=== PATIENT | female | born 1950 | race Caucasian/White ===

== ENCOUNTER 2024-08-11 13:16 | Inpatient (IN) ==
[2024-08-11] MEDS: fentaNYL citrate PF 100 MCG/2 ML VIAL IV STA (14:05)
[2024-08-11] MEDS: ONDANSETRON INJ 2 MG/ML 2 ML VIAL IV STA ×2 (14:05→15:31)
[2024-08-11] MEDS: SODIUM CHLORIDE 0.9% 500 ML IV ONE (14:05)
--- NOTE | 2024-08-11 14:16 | Emergency Department Note ---
Impression & Plan Fall, CHI (closed head injury), Contusion of face, Left wrist fracture, Foot pain, left ED Provider Note CHIEF COMPLAINT: Wrist and Ankle/Foot Trauma HISTORY OF PRESENT ILLNESS: Jai (sandoval Lynn) is 74 year old with a history of osteopenia who presents to the emergency department with wrist, ankle, and face pain after falling. She was crossing the street and fell over an uneven sidewalk. She hit her left cheek on the sidewalk, went to brace herself with her left hand/wrist, and twisted her ankle. She was wearing glasses when she fell but they did not break. Did not lose consciousness and she has not vomited. She did not feel dizzy or lightheaded before she fell. Feels severe pain (10/10) in her left wrist and her left foot (10/10). Moderate pain in face when talking. Lives in [place] coming to [employer] for [employer] game. Here with her daughter Mervat. Denies headache, dizziness, nausea/vomiting. Denies any chest pain or shortness of breath. No changes in vision or eyesight. No abdominal pain or back pain. REVIEW OF SYSTEMS: A review of systems was performed with positives and pertinent negatives listed in the history of present illness. 10 systems were reviewed and are otherwise negative. ALLERGIES: see below Levaquin allergy - shortness of breath and hives Sweeteners - vomiting MEDICATIONS: see below Xiidra (5% dryness) - Eye drops Supplements : Iron, B3, B12, amongst others PMH: DEXA - osteopenia (does not take calcium supplements) Past surgeries/hospitalizations: Mar 28 2024 of this year L thumb surgery for arthritis June 2022 - Left Hip Replacement Cataract surgery 1989 hysterectomy C section x3 Cyst surgery on neck SOCIAL HISTORY: No alcohol or drug use. DDx: Closed head injury, cervical spine fracture, facial fracture, concussion, left wrist fracture, hip fracture, left foot fracture PHYSICAL EXAM: Vital signs reviewed. General: anxious appearing 74-year-old female, hyperventilating and rolling on the bed HEENT: No scleral icterus, PERRLA, Superficial abrasion and ecchymosis on left cheek. Neck: nontender to palpation of cervical, thoracic and lumbar spine. Pulmonary: Normal work of breathing. Clear to auscultation bilaterally Musculoskeletal: - L Knee: full ROM without significant deformity, mild abrasion noted - Left foot: Diffusely tender to palpation without significant deformity or ecchymosis. Unwilling to bear weight. - L Wrist: Tender to palpation over the distal left wrist with mild ecchymosis noted, no obvious swelling. Neurovascularly intact distally. - L Elbow: full ROM, no tenderness to palpation, - L Shoulder: full ROM, no tenderness to palpation Neurologic: Patient awake alert and oriented x 3, speech is clear Skin: Warm, dry, no rash. Facial contusion as noted above EMERGENCY DEPARTMENT COURSE/MDM: This patient was evaluated and appeared to be in no significant distress. IV access was obtained and laboratory work was drawn. The patient was placed on the foreign language stenographer noted to be in a normal sinus rhythm. CT scan of the head, face and cervical spine were performed and revealed no evidence of acute fractures, there is soft tissue swelling noted over the left maxillary region. X-ray of the left wrist reveals a possible distal radius fracture, no significant displacement. Left elbow, left foot and left hip x-rays are read as negative. Patient was given IV fentanyl, IV Zofran, IV acetaminophen and hydrated with normal saline solution. She became quite nauseated and was given an additional 4 mg of IV Zofran. Patient was placed in a left wrist volar Ortho-Glass splint. She was unable to bear weight on the left foot and the foot was reexamined. She is diffusely tender however there is no significant deformity or swelling. She was placed in a walking boot. Patient became quite nauseated was given a second dose of IV Zofran. She requested additional pain medication was given additional IV fentanyl. Patient and daughter were quite anxious about the level of discomfort and the patient's inability to bear weight on the foot. They did not think she would be able to make it home in the car for 2 hours to follow-up with her orthopedic surgeon. Given that the patient is unable to bear weight on the left foot has a likely fracture left wrist, was felt to be in the patient's best interest to be evaluated by the hospitalist service for admission, orthopedic and PT consultation and further management. Patient and daughter are aware of the plan and agreed. MONITORING: An order for cardiac monitoring was placed and the patient is noted to be in a normal sinus rhythm 79 beats per minute. RADIOLOGY: CT imaging of the head to my interpretation and radiology's over read reveals no evidence of acute intracranial process. CT imaging of the cervical spine to radiology's interpretation is negative for acute fracture, please see final read below. Left wrist x-ray to my interpretation and radiology's over read reveals a possible distal radius fracture, please see final read below. Left elbow x-ray to my interpretation reveals no evidence of acute fracture, please see radiology's read below. Left foot x-ray to my interpretation and radiology's overread reveals no evidence of acute fracture. Please see final read below. Left hip x-ray to my interpretation radiology's over read reveals prior total hip arthroplasty without evidence of acute fracture or dislocation. Face CT per radiology reveals no evidence of acute fracture. DISPOSITION: Admission Past Med/Surg History Problem List (Updated 08/12/24 @ 07:46 by Yudy Pollack MD) Foot pain, left (Acute) Left wrist fracture (Acute) Contusion of face (Acute) CHI (closed head injury) (Acute) Fall (Acute) Social History Smoking Status: Never smoker Tobacco Type: Cigarettes Hx Alcohol Use: No Hx Substance Use: No Preferred Language: Albanian Communication Ability: Effective Professor Of History Required: No Beliefs That Will Affect Care: None Current Living Situation: Spouse and Family Current Living Situation Comment: and stepson Feels Safe at Home: Yes Assistive Devices: Glasses Allergies Allergies Allergy/AdvReac Type Severity Reaction Status Date / Time aspartame Allergy "sweeteners. Unverified 08/11/24 15:26 Causes vomiting" levofloxacin [From Levaquin] AdvReac Intermediate shortness Unverified 08/11/24 15:26 of breath and hives Home Meds Home Medications Medication Instructions Recorded Confirmed B12 1 tab PO DAILY 08/11/24 08/11/24 iron 1 tab PO DAILY 08/11/24 08/11/24 lifitegrast 5 % eye drops in a 1 drp ophthalmic (eye) BID 08/11/24 08/11/24 dropperette (Xiidra) niacin 1 tab PO DAILY 08/11/24 08/11/24 Results & Data (ED) Vital Signs Vital Signs - 24 hr 08/11/24 13:25 Temperature 36.7 C Temperature Source Oral Pulse Rate 79 Respiratory Rate 22 Blood Pressure 130/81 Blood Pressure Mean 97 Pulse Oximetry 100 Oxygen Delivery Method Room Air Sepsis Recent Fever Within 48 Hours No Sepsis New/Unexplained Change in Mental Status No Sepsis Action Taken by Nursing No Action Required Home Medications Current Medication List: was personally reviewed by me Laboratory Data Attestation: I reviewed the patient's lab results. 08/12/24 06:09 08/12/24 06:09 Administered Medications Acetaminophen (Ofirmev) 1,000 mg in 100 mls @ 400 mls/hr IV Q8H PRN PRN Reason: Pain Stop: 08/14/24 22:07 Last Infusion: 08/11/24 22:30 Dose: Infused Documented By: Admin: 08/11/24 22:13 Dose: 400 mls/hr Documented By: BERTO Ondansetron HCl (Ondansetron Inj 2 Mg/Ml 2 Ml Vial) 4 mg IV Q4H PRN PRN Reason: Nausea Stop: 09/10/24 16:40 Last Admin: 08/12/24 03:29 Dose: 4 mg Documented By: Admin: 08/11/24 20:21 Dose: 4 mg Documented By: TESS Oxycodone HCl (Oxycodone Hcl Ir 5 Mg Tab (Immediate Release)) 5 mg PO Q6H PRN PRN Reason: Pain, breakthrough Stop: 08/25/24 16:32 Last Admin: 08/12/24 01:42 Dose: 5 mg Documented By: BERTO Discontinued Medications Fentanyl Citrate (Fentanyl Citrate Pf 100 Mcg/2 Ml Vial) 50 mcg IV NOW STA Stop: 08/11/24 13:50 Last Admin: 08/11/24 14:05 Dose: 50 mcg Documented By: LYN Fentanyl Citrate (Fentanyl Citrate Pf 100 Mcg/2 Ml Vial) 25 mcg IV NOW ONE Stop: 08/11/24 16:00 Last Admin: 08/11/24 18:44 Dose: Not Given Documented By: GALEN Sodium Chloride (Nss) 500 mls @ 999 mls/hr IV .Q31M ONE Stop: 08/11/24 14:19 Last Infusion: 08/11/24 16:31 Dose: Infused Documented By: Admin: 08/11/24 14:05 Dose: 999 mls/hr Documented By: LYN Acetaminophen (Ofirmev) 1,000 mg in 100 mls @ 400 mls/hr IV NOW STA Stop: 08/11/24 14:29 Last Infusion: 08/11/24 15:54 Dose: Infused Documented By: Admin: 08/11/24 14:33 Dose: 400 mls/hr Documented By: LYN Lactated Ringer's (Lr) 500 mls @ 999 mls/hr IV .Q31M ONE Stop: 08/11/24 18:55 Last Infusion: 08/11/24 20:19 Dose: Infused Documented By: Admin: 08/11/24 19:21 Dose: 999 mls/hr Documented By: TESS Ondansetron HCl (Ondansetron Inj 2 Mg/Ml 2 Ml Vial) 4 mg IV NOW STA Stop: 08/11/24 13:50 Last Admin: 08/11/24 14:05 Dose: 4 mg Documented By: LYN Ondansetron HCl (Ondansetron Inj 2 Mg/Ml 2 Ml Vial) 4 mg IV NOW STA Stop: 08/11/24 15:27 Last Admin: 08/11/24 15:31 Dose: 4 mg Documented By: SOPHIE Ondansetron HCl (Ondansetron Home Pack 4mg Od Tab) 1 each PO NOW ONE Stop: 08/11/24 15:43 Last Admin: 08/11/24 16:11 Dose: Not Given Documented By: GALEN Tetanus/Diphtheria Toxoids Adsorbed (Diphtheria/Tetanus Tox Adsorb Vaccine (Td) 0.5 Ml Syr/Vial) 0.5 ml IM .ONCE ONE Stop: 08/11/24 16:42 Last Admin: 08/11/24 18:50 Dose: 0.5 ml Documented By: GALEN Imaging Data Radiologist's Impression: Head CT 08/11/24 13:47 CT head/brain wo con CLINICAL HISTORY: trauma Technique: Contiguous axial CT images of the head were acquired from the base of the skull to the vertex without intravenous contrast administration. Images were viewed in brain, subdural and bone windows. Automated dose lowering techniques and/or adjustment according to patient size were utilized for this exam. Comparison: None available at the time of this dictation. Findings: The ventricles, basal cisterns, and cerebral sulci are normal. There is no acute intracranial hemorrhage or evidence of acute territorial infarction. Neither mass effect, shift of the midline structures, nor abnormal extra-axial fluid collections are shown. Imaged portions of the paranasal sinuses and mastoid air cells are clear. The orbits appear normal. There are no acute fractures of the calvaria or scalp swelling. Impression: No acute intracranial hemorrhage, no evidence of acute territorial infarction or other acute intracranial disease process. ACT 112: Negative or not required by law. Electronically signed by: Phillip Garcia M.D. 08/11/2024 3:[address] 08/11/24 13:48 CT cervical spine wo con CLINICAL HISTORY: trauma TECHNIQUE: Multidetector row helical CT of the cervical spine was performed without administration of intravenous contrast. Coronal and sagittal reformations were obtained. Automated dose lowering techniques and/or adjustment according to patient size were utilized for this exam. Comparison: None available at the time of this dictation. FINDINGS: No acute fractures or subluxations are identified. Degenerative changes are seen in the visualized spine. The alignment is normal. Biapical scarring is seen in the lungs. IMPRESSION: Degenerative changes without evidence of acute bony injury. ACT 112: Negative or not required by law. Electronically signed by: Phillip Garcia M.D. 08/11/2024 3:21 PM Wrist X-Ray 08/11/24 13:48 XR wrist LT min 3V routine CLINICAL HISTORY: trauma TECHNIQUE: 4 views of the left wrist were obtained. Comparison: None available at the time of this dictation. FINDINGS: There is a lucency projecting over the radial metaphysis. Apparent lucency over the lateral portion of the scaphoid only is likely artifactual. Joint spaces are well-preserved. Soft tissue swelling is seen about the wrist. IMPRESSION: Possible nondisplaced radial fracture. Scaphoid lucency is likely artifactual but correlation with point tenderness is recommended. ACT 112: Negative or not required by law. Electronically signed by: Phillip Garcia M.D. 08/11/2024 2:38 PM Elbow X-Ray 08/11/24 14:14 XR elbow LT min 3V routine CLINICAL HISTORY: trauma TECHNIQUE: 3 views of the left elbow were obtained. Comparison: None available at the time of this dictation. FINDINGS: There is no evidence of an acute fracture. Apparent irregularity in the lateral epicondyle is likely artifactual. Joint spaces are well-preserved. There is no prominence of the anterior or posterior fat pads to suggest an effusion. No soft tissue abnormality is seen. IMPRESSION: No evidence of acute osseous injury. Apparent irregularity in the lateral epicondyle is likely artifactual, correlation with point tenderness is recommended. ACT 112: Negative or not required by law. Electronically signed by: Phillip Garcia M.D. 08/11/2024 3:34 PM Foot X-Ray 08/11/24 14:14 XR foot LT min 3V routine CLINICAL HISTORY: trauma TECHNIQUE: 3 views of the left foot were obtained. Comparison: None available at the time of this dictation. FINDINGS: No fractures are present. Bones are osteopenic. Irregularity about the lateral aspects of the second, third, and fourth metatarsal proximal shaft is likely chronic. Degenerative changes are seen. No soft tissue abnormality is seen. IMPRESSION: Degenerative changes without evidence of acute fracture. ACT 112: Negative or not required by law. Electronically signed by: Phillip Garcia M.D. 08/11/2024 3:34 PM Hip X-Ray 08/11/24 14:14 XR hip LT min 2V CLINICAL HISTORY: trauma TECHNIQUE: 2 views of the left hip were obtained. Comparison: None available at the time of this dictation. FINDINGS: There is no evidence of an acute fracture. Total hip arthoplasty hardware is seen without perihardware lucency or hardware fracture. No soft tissue abnormality is seen. IMPRESSION: No evidence of acute osseous injury. ACT 112: Negative or not required by law. Electronically signed by: Phillip Garcia M.D. 08/11/2024 3:[address] 08/11/24 14:49 CT facial bones wo con CLINICAL HISTORY: trauma TECHNIQUE: Multidetector row helical CT of the maxillofacial bones was performed without administration of intravenous contrast, and processed with bone and soft tissue algorithms. Coronal and sagittal reformations were obtained. Automated dose lowering techniques and/or adjustment according to patient size were utilized for this exam. Comparison: None available at the time of this dictation. FINDINGS: Nasal bones are normal. The mandible is intact. The temporomandibular joints are anatomically aligned. Pterygoid plates are intact. Zygomatic arches are intact. The globes are normal and symmetric, without proptosis, obvious disruption or lens dislocation. There is no orbital radiopaque foreign body. The orbital tubbs are intact. The retrobulbar fat is without evidence of disruption. Extraocular muscles are normal and symmetric. Optic nerve sheath complexes are normal in course and caliber. Imaged portions of the paranasal sinuses and mastoid air cells are clear. Soft tissue swelling is seen in the left greater than right maxillary region. Numerous radiodensities in the skin surface may represent foreign bodies. IMPRESSION: Soft tissue swelling and possible radiodense foreign bodies within the skin surface. No evidence of acute fracture. ACT 112: Negative or not required by law. Electronically signed by: Phillip Garcia M.D. 08/11/2024 3:23 PM Discharge Plan Visit Data Chief Complaint: Fall Stated Complaint: FALL ED Provider: Yudy Pollack Discharge Problem: Fall, CHI (closed head injury), Contusion of face, Left wrist fracture, Foot pain, left Patient Disposition: Home - Self-Care Condition: Good Discharge Instructions Interventions: ED Discharge Assessment Last Done: 08/11/24 21:23 Discharge Problem: Fall Qualifiers: Encounter type: initial encounter Qualified Code(s): W19.XXXA - Unspecified fall, initial encounter CHI (closed head injury) Qualifiers: Encounter type: initial encounter Qualified Code(s): S09.90XA - Unspecified injury of head, initial encounter Contusion of face Qualifiers: Encounter type: initial encounter Qualified Code(s): S00.83XA - Contusion of other part of head, initial encounter Left wrist fracture Qualifiers: Encounter type: initial encounter Fracture type: closed Qualified Code(s): S 62.102A - Fracture of unspecified carpal bone, left wrist, initial encounter for closed fracture
[2024-08-11] MEDS: ACETAMINOPHEN 1,000 MG/100 ML VIAL IV STA (14:33)
--- NOTE | 2024-08-11 14:39 | XRay Report ---
XR wrist LT min 3V routine CLINICAL HISTORY: trauma TECHNIQUE: 4 views of the left wrist were obtained. Comparison: None available at the time of this dictation. FINDINGS: There is a lucency projecting over the radial metaphysis. Apparent lucency over the lateral portion o f the scaphoid only is likely artifactual. Joint spaces are well-preserved. Soft tissue swelling is s een about the wrist. IMPRESSION: Possible nondisplaced radial fracture. Scaphoid lucency is likely artifactual but correlation with po int tenderness is recommended. ACT 112: Negative or not required by law. Electronically signed by: Phillip Garcia M.D. 08/11/2024 2:38 PM
--- NOTE | 2024-08-11 15:12 | CT Scan Report ---
CT head/brain wo con CLINICAL HISTORY: trauma Technique: Contiguous axial CT images of the head were acquired from the base of the skull to the april angel luis without intravenous contrast administration. Images were viewed in brain, subdural and bone [facility] . Automated dose lowering techniques and/or adjustment according to patient size were utilized for this exam. Comparison: None available at the time of this dictation. Findings: The ventricles, basal cisterns, and cerebral sulci are normal. There is no acute intracranial hemorrh age or evidence of acute territorial infarction. Neither mass effect, shift of the midline structures , nor abnormal extra-axial fluid collections are shown. Imaged portions of the paranasal sinuses and mastoid air cells are clear. The orbits appear normal. There are no acute fractures of the calvaria or scalp swelling. Impression: No acute intracranial hemorrhage, no evidence of acute territorial infarction or other acute intracra nial disease process. ACT 112: Negative or not required by law. Electronically signed by: Phillip Garcia M.D. 08/11/2024 3:11 PM
--- NOTE | 2024-08-11 15:23 | CT Scan Report ---
CT cervical spine wo con CLINICAL HISTORY: trauma TECHNIQUE: Multidetector row helical CT of the cervical spine was performed without administration of intravenous contrast. Coronal and sagittal reformations were obtained. Automated dose lowering techn iques and/or adjustment according to patient size were utilized for this exam. Comparison: None available at the time of this dictation. FINDINGS: No acute fractures or subluxations are identified. Degenerative changes are seen in the visualized sp ine. The alignment is normal. Biapical scarring is seen in the lungs. IMPRESSION: Degenerative changes without evidence of acute bony injury. ACT 112: Negative or not required by law. Electronically signed by: Phillip Garcia M.D. 08/11/2024 3:21 PM
--- NOTE | 2024-08-11 15:24 | CT Scan Report ---
CT facial bones wo con CLINICAL HISTORY: trauma TECHNIQUE: Multidetector row helical CT of the maxillofacial bones was performed without administrati on of intravenous contrast, and processed with bone and soft tissue algorithms. Coronal and sagittal reformations were obtained. Automated dose lowering techniques and/or adjustment according to patient size were utilized for this exam. Comparison: None available at the time of this dictation. FINDINGS: Nasal bones are normal. The mandible is intact. The temporomandibular joints are anatomically aligned . Pterygoid plates are intact. Zygomatic arches are intact. The globes are normal and symmetric, without proptosis, obvious disruption or lens dislocation. Ther e is no orbital radiopaque foreign body. The orbital tubbs are intact. The retrobulbar fat is without evidence of disruption. Extraocular muscles are normal and symmetric. Optic nerve sheath complexes are normal in course and caliber. Imaged portions of the paranasal sinuses and mastoid air cells are clear. Soft tissue swelling is se en in the left greater than right maxillary region. Numerous radiodensities in the skin surface may r epresent foreign bodies. IMPRESSION: Soft tissue swelling and possible radiodense foreign bodies within the skin surface. No evidence of a cute fracture. ACT 112: Negative or not required by law. Electronically signed by: Phillip Garcia M.D. 08/11/2024 3:23 PM
--- NOTE | 2024-08-11 15:32 | XRay Report ---
XR hip LT min 2V CLINICAL HISTORY: trauma TECHNIQUE: 2 views of the left hip were obtained. Comparison: None available at the time of this dictation. FINDINGS: There is no evidence of an acute fracture. Total hip arthoplasty hardware is seen without perihardwar e lucency or hardware fracture. No soft tissue abnormality is seen. IMPRESSION: No evidence of acute osseous injury. ACT 112: Negative or not required by law. Electronically signed by: Phillip Garcia M.D. 08/11/2024 3:30 PM
--- NOTE | 2024-08-11 15:35 | XRay Report ---
XR foot LT min 3V routine CLINICAL HISTORY: trauma TECHNIQUE: 3 views of the left foot were obtained. Comparison: None available at the time of this dictation. FINDINGS: No fractures are present. Bones are osteopenic. Irregularity about the lateral aspects of the second, third, and fourth metatarsal proximal shaft is likely chronic. Degenerative changes are seen. No sof t tissue abnormality is seen. IMPRESSION: Degenerative changes without evidence of acute fracture. ACT 112: Negative or not required by law. Electronically signed by: Phillip Garcia M.D. 08/11/2024 3:34 PM
--- NOTE | 2024-08-11 15:35 | XRay Report ---
XR elbow LT min 3V routine CLINICAL HISTORY: trauma TECHNIQUE: 3 views of the left elbow were obtained. Comparison: None available at the time of this dictation. FINDINGS: There is no evidence of an acute fracture. Apparent irregularity in the lateral epicondyle is likely artifactual. Joint spaces are well-preserved. There is no prominence of the anterior or posterior fat pads to suggest an effusion. No soft tissue abnormality is seen. IMPRESSION: No evidence of acute osseous injury. Apparent irregularity in the lateral epicondyle is likely artifa ctual, correlation with point tenderness is recommended. ACT 112: Negative or not required by law. Electronically signed by: Phillip Garcia M.D. 08/11/2024 3:34 PM
[2024-08-11] MEDS: ONDANSETRON HOME PACK 4MG OD TAB PO ONE (16:11)
[2024-08-11] MEDS ORDERED: ACETAMINOPHEN 325 MG TAB PO PRN (16:33)
--- NOTE | 2024-08-11 16:40 | History & Physical Report ---
Date of Service August 11, 2024 Assessment & Plan (1) Fall: Plan: Mechanical Fall. The left radial fracture and,? Scaphoid fracture Patient has followed with a hand surgeon Dr. Negron at [facility] in the past Exam as listed below. Return home was offered and recommended to patient by ER however due to inability to bear weight on her left foot she is not able to ambulate and be discharged home. Was recommended for medical admission for pain control, PT/OT, and reevaluation of left weightbearing ability Finger flexion/extension intact, sensation intact in all 5 fingers without deficit bilaterally LEFT LE: Patient has significant pain from the distal abel down radiating into the mid foot on the dorsal surface with any attempted movement and reports she cannot weight-bear even with the boot 2/2 pain. No left foot fracture is seen. If severe pain and ability to weight-bear persists, obtain CT of distal left leg and foot in a.m. LEFT UE: Left hand is with snuffbox tenderness, being wrapped and splinted at time of visit.x-rays with distal radial nondisplaced fracture. Patient has snuffbox tenderness and with a fall to an outstretched hand. Left wrist volar wrist splint being placed in ER. Given snuffbox tenderness recommend repeat radiograph in 14-21 days and review with patient's home orthopedic surgeon CTface: Soft tissue swelling, possible foreign bodies underlying skin service from abrasion. Tetanus offered. Lives in [place]. PT/OT pending Given possible foreign body noted on facial CT did offer tetanus booster cheek washed out and cleaned at the bedside by nursing staff. Patient last had vaccinations around 8 years ago, agreeable to Tdap booster. Her/benefits reviewed and Tdap given ?Concussion -Patient is with some nausea while in the ER. He did also receive fentanyl and may be having reaction to narcotics, no rashes present Evidence of concussion there is no diplopia, no nystagmus, she does not have a headache. Will continue to monitor. CThead clear. CTC-spine without fracture Diet: Regular Disposition: Medical/surgical CODE STATUS: DNR/DNI, confirmed with patient at bedside on admission History of Present Illness Primary Care Provider: NO PCP Patient is a 74-year-old female with a past medical history of left hand surgery at orth[facility] who is visiting from out of town and was rushing when she tripped over a curve called saying her to fall. She reports she was twisted when she fell and fell onto a possibly outstretched left hand. Did not lose consciousness. Did strike her face. She is not on blood thinners. No chest pain, chest pressure, lightheadedness, dizziness that contributed to her fall. She does not have a headache at time of admission. She reports that her left lower leg hurts on any attempted to weight-bear. She is able to wiggle the toes and move the ankle a little bit however ankle movement is rapidly limited by pain. She reports her left wrist hurts, she is able to flex and extend her fingers and is being placed in a splint at time of exam. She denies any past cardiac history. She reports she takes mostly multivitamins, no daily prescription medications other than eyedrops. Allergic to Levaquin, denies other medication allergies. Reports CODE STATUS is DNR/DNI. She does not use tobacco products, no alcohol use. Due to her pain she is not able to ambulate and reports she is not able to return home or be discharged from the hospital at this time. Allergies Allergy/AdvReac Type Severity Reaction Status Date / Time aspartame Allergy "sweeteners. Unverified 08/11/24 15:26 Causes vomiting" levofloxacin [From Levaquin] AdvReac Intermediate shortness Unverified 08/11/24 15:26 of breath and hives Home Medications Medication Instructions Recorded Confirmed Type B12 1 tab PO DAILY 08/11/24 History Xiidra 1 drp ophthalmic (eye) DIRECTED 08/11/24 History iron 1 tab PO DAILY 08/11/24 History niacin 1 tab PO DAILY 08/11/24 History Past Med/Surg History Problem List Left wrist fracture (Acute) Contusion of face (Acute) CHI (closed head injury) (Acute) Fall (Acute) Social History Smoking Status: Former smoker Tobacco Type: Cigarettes Preferred Language: Gabonese Feels Safe at Home: Yes Physical Exam Physical Exam: General: A&Ox3. NAD. Cooperative. HEENT: normocephalic. PERLAA. Vision/hearing intact. L cheek abrasion. Pulm: CTAB A&P. -wheezes, -rales, -rhonchi. Symmetrical chest rise. No increased work of breathing. No respiratory distress. Cardiac: RRR, -mrg. Radial pulses intact and symmetrical. Abdominal: Nontender, nondistended, soft. BS present. Physical exam Left knee: Anterior abrasion, flexion/extension with full strength, full range of motion. - L elbow: No lateral epicondyle TTP Left foot: Tender to palpation overlying the anterior/dorsal surface. No soft tissue swelling/hematoma noted. Able to wiggle toes without difficulty. Is able to initiate ankle dorsi/plantarflexion however this is rapidly pain limited. DP/PT pulse is intact. Right foot: Nontender. Neurovascularly intact. Ankle dorsiflexion/plantarflexion with full strength Right knee: Full range of motion, flexion/extension intact Results & Data Results & Data Vital Signs (Past 12 Hours) Vital Signs Temp Pulse Resp BP Pulse Ox O2 Del Method 08/11/24 13:25 36.7 C 79 22 130/81 100 Room Air PG Care Time/CCT Total # of Minutes Spent Total Time Spent with Patient: Total time spent is greater than 50% in coordination of care (as documented) at patient's floor/unit and/or counseling patient: Coding Level of Care Code 91435 INT INP/OBS CARE 2/55MIN Diagnoses Fall W19.XXXA Encounter type: initial encounter (1) Fall Encounter type: initial encounter Qualified Code(s): W19.XXXA - Unspecified fall, initial encounter
[2024-08-11] MEDS ORDERED: PROMETHAZINE HCL 12.5 MG/10 ML UDP PO PRN (16:51)
[2024-08-11 17:32] LABS: Basophils # (auto) 0.03 K/uL (0.00-0.20); Basophils % (auto) 0.2 %; Eosinophils # (auto) 0.03 K/uL (0.00-0.50); Eosinophils % (auto) 0.2 %; Hematocrit (blood only) 37.7 % (37.0-47.0); Hemoglobin 12.4 g/dl (12.0-16.0); Immature Granulocytes # (auto) 0.04 K/uL (0.01-0.20); Immature Granulocytes % (auto) 0.3 %; Lymphocytes # (auto) 0.83 K/uL (1.20-3.40); Mean Corpuscular Hemoglobin 29.7 pg (25.0-34.0); Mean Corpuscular Hgb Conc 32.9 g/dL (32.0-36.0); Mean Corpuscular Volume 90.2 fL (80.0-100.0); Mean Platelet Volume 9.5 fL (9.4-12.4); Monocytes # (auto) 0.76 K/uL (0.11-0.59); Monocytes % (auto) 5.5 %; Neutrophils % (auto) 87.8 %; Platelet Count 224 K/uL (130-400); RDW Coefficient of Variation 11.9 % (11.5-14.5); RDW Standard Deviation 38.9 fL (36.4-46.3); Red Blood Count 4.18 M/uL (4.20-5.40); White Blood Count 13.79 K/ul (4.8-10.8)
[2024-08-11 17:54] LABS: Prothrombin Time 10.5 Seconds (9.0-12.0)
[2024-08-11 17:56] LABS: Albumin Globulin Ratio 1.5 (0.9-2); Albumin Level 4.1 gm/dl (3.4-5.0); BUN Creatinine Ratio 16.3 (10-20); Bilirubin,Total 0.3 mg/dl (0.2-1.0); Calcium 9.2 mg/dl (8.6-10.3); Creatinine Clr Calc Pharmacy 50.3 ml/min; Est GFR (African American) 77.7 ml/min; Globulin 2.7 gm/dl (2.5-4.0); Potassium 4.1 mmol/L (3.5-5.1); Total Protein 6.8 gm/dl (6.0-8.3)
[2024-08-11 18:04] LABS: Troponin I High Sensitivity 6.2 pg/ml (0-14)
--- NOTE | 2024-08-11 18:13 | CT Scan Report ---
CT foot LT wo con CLINICAL HISTORY: NWB, severe dorsal midfood pain TECHNIQUE: Multidetector row helical CT of the left foot was performed without intravenous contrast. Coronal and sagittal reformations were obtained. Automated dose lowering techniques and/or adjustment according to patient size were utilized for this examination. CT DOSE: 332.7 mGy.cm Comparison: Comparison is made to foot radiograph 08/11/2024 FINDINGS: Fractures of the dorsal aspect of the cuneiform bones noted. There is a fracture of the superior aspe ct of the navicular bone. Fracture of the superior and inferior aspects of the cuboid bone. Degenerat radha changes are seen. There are is extensive osteopenia. Soft tissue swelling is seen. IMPRESSION: Nondisplaced fractures of the superior aspect of the 3 cuneiform bones, superior aspect of the navicu lar bone, and superior and inferior cuboid bone with associated soft tissue swelling. ACT 112: Negative or not required by law. Electronically signed by: Phillip Garcia M.D. 08/11/2024 6:10 PM
[2024-08-11] MEDS ORDERED: NITROGLYCERIN SL 0.4 MG/TAB TAB SL PRN (18:24)
[2024-08-11] MEDS: fentaNYL citrate PF 100 MCG/2 ML VIAL IV ONE (18:44)
[2024-08-11] MEDS: DIPHTHERIA/TETANUS TOX ADSORB VACCINE (Td) 0.5 ML SYR/VIAL IM ONE (18:50)
[2024-08-11] MEDS: LACTATED RINGER'S 500 ML IV ONE (19:21)
[2024-08-11] MEDS: ONDANSETRON INJ 2 MG/ML 2 ML VIAL IV PRN (20:21)
[2024-08-11] MEDS: ACETAMINOPHEN 1,000 MG/100 ML VIAL IV PRN (22:13)
[2024-08-11 22:39] LABS: Appearance Urine Clear (Clear); Bilirubin Urine Negative (Negative); Blood Urine Negative (Negative); Color Urine Yellow; Glucose Urine UA Negative (Negative); Ketones Urine Negative (Negative); Leukocyte Esterase Urine Negative (Negative); Nitrite Urine Negative (Negative); Protein Urine Negative (Negative); Specific Gravity Urine 1.009 (1.000-1.030); Urobilinogen Urine Negative (Negative)
[2024-08-12] MEDS: oxyCODONE HCL IR 5 MG TAB (IMMEDIATE RELEASE) PO PRN (01:42)
[2024-08-12 06:25] LABS: Basophils # (auto) 0.02 K/uL (0.00-0.20); Basophils % (auto) 0.2 %; Eosinophils # (auto) 0.05 K/uL (0.00-0.50); Eosinophils % (auto) 0.5 %; Hematocrit (blood only) 35.2 % (37.0-47.0); Hemoglobin 11.9 g/dl (12.0-16.0); Immature Granulocytes # (auto) 0.02 K/uL (0.01-0.20); Immature Granulocytes % (auto) 0.2 %; Lymphocytes # (auto) 0.75 K/uL (1.20-3.40); Mean Corpuscular Hemoglobin 30.2 pg (25.0-34.0); Mean Corpuscular Hgb Conc 33.8 g/dL (32.0-36.0); Mean Corpuscular Volume 89.3 fL (80.0-100.0); Mean Platelet Volume 9.5 fL (9.4-12.4); Monocytes # (auto) 0.76 K/uL (0.11-0.59); Monocytes % (auto) 7.1 %; Neutrophils # (auto) 9.04 K/uL (1.40-6.50); Platelet Count 196 K/uL (130-400); RDW Standard Deviation 39.6 fL (36.4-46.3); Red Blood Count 3.94 M/uL (4.20-5.40); White Blood Count 10.64 K/ul (4.8-10.8)
[2024-08-12 06:44] LABS: BUN Creatinine Ratio 14.7 (10-20); Calcium 9.2 mg/dl (8.6-10.3); Creatinine Clr Calc Pharmacy 63.6 ml/min; Est GFR (African American) 100.6 ml/min; Est GFR (Non-African American) 86.8 ml/min; Potassium 3.8 mmol/L (3.5-5.1)
[2024-08-12 12:10] LABS: iSTAT Creatinine 0.9 mg/dl (0.6-1.3); iSTAT Hemoglobin 12.6 g/dl (12.0-16.0); iSTAT Ionized Calcium 1.19 mmol/l (1.12-1.32)
[2024-08-12] MEDS: PROCHLORPERAZINE 5 MG in SYRINGE 4 ML IV PRN (13:07)
--- NOTE | 2024-08-12 13:11 | Orthopedic Consultation ---
Date of Service August 12, 2024 Assessment & Plan (1) Left wrist fracture: Continue use of splint. No not remove. Recommend f/u with ortho in [place] for casting and follow up care. (2) Fracture of intermediate cuneiform of left foot: Continue with use of the boot. At this point maintain non-weightbearing status of LLE. Follow up with ortho in [place]. Use ice and elevate LLE. Continue with pain control and antiemetics. Consideration for rehab with fractured left wrist. Consider platform crutches to ambulate with LLE extremity. Plan was discussed and agreed upon in consultation with Dr. Sorensen. Questions can be send via [facility] Text to Dr. Sorensen. History of Present Illness Reason for Consultation: . Requesting Physician: . Attending Physician: Rigo Suggs Patient is a 74 y/o female who sustained a fall yesterday in [facility]. She is visiting from [place], was crossing the road and tripped on something in the road. She fell hard to her left side. She injured her left wrist and left foot. 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 She is currently splinted and not in any pain with her left wrist. He left foot is very painful to move and touch. She is in a boot. Denies any prior issues with her foot prior to the injury. Allergies Allergy/AdvReac Type Severity Reaction Status Date / Time aspartame Allergy "sweeteners. Unverified 08/11/24 15:26 Causes vomiting" levofloxacin [From Levaquin] AdvReac Intermediate shortness Unverified 08/11/24 15:26 of breath and hives Home Medications Medication Instructions Recorded Confirmed Type B12 1 tab PO DAILY 08/11/24 08/11/24 History iron 1 tab PO DAILY 08/11/24 08/11/24 History lifitegrast 5 % eye drops in a 1 drp ophthalmic (eye) BID 08/11/24 08/11/24 History dropperette (Xiidra) niacin 1 tab PO DAILY 08/11/24 08/11/24 History Past Med/Surg History Problem List (Updated 08/12/24 @ 13:06 by Demetrio Harrison PA-C) Fracture of intermediate cuneiform of left foot Foot pain, left (Acute) Left wrist fracture (Acute) Contusion of face (Acute) CHI (closed head injury) (Acute) Fall (Acute) Social History Smoking Status: Never smoker Tobacco Type: Cigarettes Hx Alcohol Use: No Hx Substance Use: No Preferred Language: French Communication Ability: Effective Wharfmaster Required: No Beliefs That Will Affect Care: None Current Living Situation: Spouse and Family Current Living Situation Comment: and stepson Feels Safe at Home: Yes Assistive Devices: Walker Review of Systems All systems reviewed & are unremarkable except as noted in HPI & below. Physical Exam Patient is sitting comfortably in bed, nausea. Left wrist is splinted. She is neurovascularly intact. Good capillary refill. Left foot severe pain to palpate the midfoot. Mild swelling. Good ROM ankle and finger. Results & Data Results & Data Laboratory Results . Diagnostic Findings . PG Care Time/CCT Total # of Minutes Spent Total Time Spent with Patient: Total time spent is greater than 50% in coordination of care (as documented) at patient's floor/unit and/or counseling patient: Coding Level of Care Code 97691 IN/OBS CONSULT LVL 3,45M Diagnoses Left wrist fracture S62.102A Encounter type: initial encounter Fracture type: closed Fracture of intermediate cuneiform of left foot S92.232A (1) Left wrist fracture Encounter type: initial encounter Fracture type: closed Qualified Code(s): S62.102A - Fracture of unspecified carpal bone, left wrist, initial encounter for closed fracture
--- NOTE | 2024-08-12 21:50 | Hospitalist Progress Note ---
Date of Service August 12, 2024 Assessment & Plan (1) Fall: Plan: Mechanical Fall. The left radial fracture and,? Scaphoid fracture Patient has followed with a hand surgeon Dr. Negron at [facility] in the past Exam as listed below. Return home was offered and recommended to patient by ER however due to inability to bear weight on her left foot she is not able to ambulate and be discharged home. Was recommended for medical admission for pain control, PT/OT, and reevaluation of left weightbearing ability Finger flexion/extension intact, sensation intact in all 5 fingers without deficit bilaterally LEFT LE: Patient has significant pain from the distal abel down radiating into the mid foot on the dorsal surface with any attempted movement and reports she cannot weight-bear even with the boot 2/2 pain. No left foot fracture is seen. If severe pain and ability to weight-bear persists, obtain CT of distal left leg and foot in a.m. LEFT UE: Left hand is with snuffbox tenderness, being wrapped and splinted at time of visit.x-rays with distal radial nondisplaced fracture. Patient has snuffbox tenderness and with a fall to an outstretched hand. Left wrist volar wrist splint being placed in ER. Given snuffbox tenderness recommend repeat radiograph in 14-21 days and review with patient's home orthopedic surgeon CTface: Soft tissue swelling, possible foreign bodies underlying skin service from abrasion. Tetanus offered. Lives in [place]. PT/OT pending Given possible foreign body noted on facial CT did offer tetanus booster cheek washed out and cleaned at the bedside by nursing staff. Patient last had vaccinations around 8 years ago, agreeable to Tdap booster. Her/benefits reviewed and Tdap given -consulted orthopedics: patient placed in boot Continue current pain control: switched tylenol to scheduled. ?Concussion -Patient is with some nausea while in the ER. He did also receive fentanyl and may be having reaction to narcotics, no rashes present Evidence of concussion there is no diplopia, no nystagmus, she does not have a headache. Will continue to monitor. CThead clear. CTC-spine without fracture Diet: Regular Disposition: Medical/surgical CODE STATUS: DNR/DNI, confirmed with patient at bedside on admission Admission and Anticipated Discharge Date Admission Date: August 11, 2024 Subjective Patient is resting comfortably. Review of Systems Review of Systems: All systems reviewed & are unremarkable except as noted in HPI & below Physical Exam Physical Exam: General: A&Ox3. NAD. Cooperative. HEENT: normocephalic. PERLAA. Vision/hearing intact. L cheek abrasion. Pulm: CTAB A&P. -wheezes, -rales, -rhonchi. Symmetrical chest rise. No increased work of breathing. No respiratory distress. Cardiac: RRR, -mrg. Radial pulses intact and symmetrical. Abdominal: Nontender, nondistended, soft. BS present. Results & Data Results & Data Vital Signs (Past 12 Hours) Vital Signs Temp Pulse Pulse Resp BP Pulse Ox O2 Del Method 08/12/24 19:58 36.6 C 68 18 152/78 H 99 Room Air 08/12/24 16:27 85 08/12/24 15:07 36.2 C L 80 16 164/77 H 90 Room Air 08/12/24 11:50 36.5 C 78 17 150/78 H 99 Room Air PG Care Time/CCT Total # of Minutes Spent Total Time Spent with Patient: Total time spent is greater than 50% in coordination of care (as documented) at patient's floor/unit and/or counseling patient: Coding Level of Care Code 67494 SUB INP/OBS CARE 2/35MIN Diagnoses Fall W19.XXXA Encounter type: initial encounter (1) Fall Encounter type: initial encounter Qualified Code(s): W19.XXXA - Unspecified fall, initial encounter
[2024-08-13 07:05] LABS: Basophils # (auto) 0.05 K/uL (0.00-0.20); Basophils % (auto) 0.7 %; Hematocrit (blood only) 35.8 % (37.0-47.0); Hemoglobin 11.9 g/dl (12.0-16.0); Immature Granulocytes # (auto) 0.01 K/uL (0.01-0.20); Immature Granulocytes % (auto) 0.1 %; Lymphocytes # (auto) 1.07 K/uL (1.20-3.40); Lymphocytes % (auto) 15.9 %; Mean Corpuscular Hemoglobin 29.8 pg (25.0-34.0); Mean Corpuscular Hgb Conc 33.2 g/dL (32.0-36.0); Mean Corpuscular Volume 89.7 fL (80.0-100.0); Mean Platelet Volume 9.6 fL (9.4-12.4); Monocytes # (auto) 0.59 K/uL (0.11-0.59); Monocytes % (auto) 8.8 %; Neutrophils # (auto) 4.82 K/uL (1.40-6.50); Neutrophils % (auto) 71.5 %; Platelet Count 199 K/uL (130-400); RDW Standard Deviation 39.5 fL (36.4-46.3); Red Blood Count 3.99 M/uL (4.20-5.40); White Blood Count 6.74 K/ul (4.8-10.8)
[2024-08-13 07:34] LABS: BUN Creatinine Ratio 16.7 (10-20); Calcium 9.1 mg/dl (8.6-10.3); Creatinine Clr Calc Pharmacy 72.1 ml/min; Est GFR (African American) 104.8 ml/min; Est GFR (Non-African American) 90.4 ml/min; Potassium 3.9 mmol/L (3.5-5.1)
[2024-08-13] MEDS: ACETAMINOPHEN 325 MG TAB PO SCH (08:14)
--- NOTE | 2024-08-13 17:56 | Hospitalist Progress Note ---
Date of Service August 13, 2024 Assessment & Plan (1) Fall: Plan: Mechanical Fall. The left radial fracture and,? Scaphoid fracture Patient has followed with a hand surgeon Dr. Negron at [facility] in the past Exam as listed below. Return home was offered and recommended to patient by ER however due to inability to bear weight on her left foot she is not able to ambulate and be discharged home. Was recommended for medical admission for pain control, PT/OT, and reevaluation of left weightbearing ability Finger flexion/extension intact, sensation intact in all 5 fingers without deficit bilaterally LEFT LE: Patient has significant pain from the distal abel down radiating into the mid foot on the dorsal surface with any attempted movement and reports she cannot weight-bear even with the boot 2/2 pain. No left foot fracture is seen. If severe pain and ability to weight-bear persists, obtain CT of distal left leg and foot in a.m. LEFT UE: Left hand is with snuffbox tenderness, being wrapped and splinted at time of visit.x-rays with distal radial nondisplaced fracture. Patient has snuffbox tenderness and with a fall to an outstretched hand. Left wrist volar wrist splint being placed in ER. Given snuffbox tenderness recommend repeat radiograph in 14-21 days and review with patient's home orthopedic surgeon CTface: Soft tissue swelling, possible foreign bodies underlying skin service from abrasion. Tetanus offered. Lives in [place]. PT/OT pending Given possible foreign body noted on facial CT did offer tetanus booster cheek washed out and cleaned at the bedside by nursing staff. Patient last had vaccinations around 8 years ago, agreeable to Tdap booster. Her/benefits reviewed and Tdap given -consulted orthopedics: patient placed in boot Continue current pain control: switched tylenol to scheduled. Pain controlled awaiting placement. ?Concussion -Patient is with some nausea while in the ER. He did also receive fentanyl and may be having reaction to narcotics, no rashes present Evidence of concussion there is no diplopia, no nystagmus, she does not have a headache. Will continue to monitor. CThead clear. CTC-spine without fracture Diet: Regular Disposition: Medical/surgical CODE STATUS: DNR/DNI, confirmed with patient at bedside on admission Admission and Anticipated Discharge Date Admission Date: August 12, 2024 Subjective Pain appears better controlled today. Review of Systems Review of Systems: All systems reviewed & are unremarkable except as noted in HPI & below Physical Exam Physical Exam: General: A&Ox3. NAD. Cooperative. HEENT: normocephalic. PERLAA. Vision/hearing intact. L cheek abrasion. Pulm: CTAB A&P. -wheezes, -rales, -rhonchi. Symmetrical chest rise. No increased work of breathing. No respiratory distress. Cardiac: RRR, -mrg. Radial pulses intact and symmetrical. Abdominal: Nontender, nondistended, soft. BS present. Results & Data Results & Data Vital Signs (Past 12 Hours) Vital Signs Temp Pulse Pulse Resp BP Pulse Ox O2 Del Method 08/13/24 15:19 36.6 C 82 18 137/73 98 Room Air 08/13/24 10:43 36.6 C 74 20 137/77 Room Air 08/13/24 09:30 69 08/13/24 08:18 Room Air 08/13/24 07:08 36.7 C 73 16 136/71 97 Room Air 08/13/24 06:58 36.8 C 65 20 145/74 H 99 Room Air PG Care Time/CCT Total # of Minutes Spent Total Time Spent with Patient: Total time spent is greater than 50% in coordination of care (as documented) at patient's floor/unit and/or counseling patient: Coding Level of Care Code 48199 SUB INP/OBS CARE 2/35MIN Diagnoses Fall W19.XXXA Encounter type: initial encounter (1) Fall Encounter type: initial encounter Qualified Code(s): W19.XXXA - Unspecified fall, initial encounter
[2024-08-14 03:39] LABS: Appearance Urine Clear (Clear); Bilirubin Urine Negative (Negative); Blood Urine Negative (Negative); Color Urine Yellow; Glucose Urine UA Negative (Negative); Ketones Urine Negative (Negative); Leukocyte Esterase Urine Negative (Negative); Nitrite Urine Negative (Negative); Protein Urine Negative (Negative); Specific Gravity Urine 1.007 (1.000-1.030); Urobilinogen Urine Negative (Negative)
[2024-08-14 07:21] LABS: Basophils # (auto) 0.04 K/uL (0.00-0.20); Basophils % (auto) 0.8 %; Eosinophils # (auto) 0.23 K/uL (0.00-0.50); Eosinophils % (auto) 4.6 %; Hematocrit (blood only) 33.5 % (37.0-47.0); Hemoglobin 11.3 g/dl (12.0-16.0); Immature Granulocytes # (auto) 0.01 K/uL (0.01-0.20); Immature Granulocytes % (auto) 0.2 %; Lymphocytes # (auto) 0.92 K/uL (1.20-3.40); Lymphocytes % (auto) 18.3 %; Mean Corpuscular Hemoglobin 29.8 pg (25.0-34.0); Mean Corpuscular Hgb Conc 33.7 g/dL (32.0-36.0); Mean Corpuscular Volume 88.4 fL (80.0-100.0); Mean Platelet Volume 9.8 fL (9.4-12.4); Monocytes # (auto) 0.48 K/uL (0.11-0.59); Monocytes % (auto) 9.6 %; Neutrophils # (auto) 3.34 K/uL (1.40-6.50); Neutrophils % (auto) 66.5 %; Platelet Count 195 K/uL (130-400); RDW Coefficient of Variation 11.8 % (11.5-14.5); RDW Standard Deviation 37.7 fL (36.4-46.3); Red Blood Count 3.79 M/uL (4.20-5.40); White Blood Count 5.02 K/ul (4.8-10.8)
[2024-08-14 07:40] LABS: Creatinine Clr Calc Pharmacy 72.1 ml/min; Est GFR (African American) 104.8 ml/min; Est GFR (Non-African American) 90.4 ml/min; Potassium 3.9 mmol/L (3.5-5.1)
[2024-08-14] MEDS: ARTIFICIAL TEARS OP OINT 3.5 GM TUBE OPL SCH (20:10)
--- NOTE | 2024-08-14 22:32 | Hospitalist Progress Note ---
Date of Service August 14, 2024 Assessment & Plan (1) Fall: Plan: Mechanical Fall. The left radial fracture and,? Scaphoid fracture Patient has followed with a hand surgeon Dr. Negron at [facility] in the past Exam as listed below. Return home was offered and recommended to patient by ER however due to inability to bear weight on her left foot she is not able to ambulate and be discharged home. Was recommended for medical admission for pain control, PT/OT, and reevaluation of left weightbearing ability Finger flexion/extension intact, sensation intact in all 5 fingers without deficit bilaterally LEFT LE: Patient has significant pain from the distal abel down radiating into the mid foot on the dorsal surface with any attempted movement and reports she cannot weight-bear even with the boot 2/2 pain. No left foot fracture is seen. If severe pain and ability to weight-bear persists, obtain CT of distal left leg and foot in a.m. LEFT UE: Left hand is with snuffbox tenderness, being wrapped and splinted at time of visit.x-rays with distal radial nondisplaced fracture. Patient has snuffbox tenderness and with a fall to an outstretched hand. Left wrist volar wrist splint being placed in ER. Given snuffbox tenderness recommend repeat radiograph in 14-21 days and review with patient's home orthopedic surgeon CTface: Soft tissue swelling, possible foreign bodies underlying skin service from abrasion. Tetanus offered. Lives in [place]. PT/OT pending Given possible foreign body noted on facial CT did offer tetanus booster cheek washed out and cleaned at the bedside by nursing staff. Patient last had vaccinations around 8 years ago, agreeable to Tdap booster. Her/benefits reviewed and Tdap given -consulted orthopedics: patient placed in boot Continue current pain control: switched tylenol to scheduled. Pain controlled awaiting placement. ?Concussion -Patient is with some nausea while in the ER. He did also receive fentanyl and may be having reaction to narcotics, no rashes present Evidence of concussion there is no diplopia, no nystagmus, she does not have a headache. Will continue to monitor. CThead clear. CTC-spine without fracture Watery left eye: Discussed with ophtalmology. No consult needed. At this point a corneal abrasion would be healed. He recommended artificial tears. Diet: Regular Disposition: Medical/surgical CODE STATUS: DNR/DNI, confirmed with patient at bedside on admission Admission and Anticipated Discharge Date Admission Date: August 12, 2024 Subjective 74 yo female reports her pain is controlled. SHe has no new complaints aside from watery eyes on her left. She does not report and sand like sensation in her eyes. Review of Systems Review of Systems: All systems reviewed & are unremarkable except as noted in HPI & below Physical Exam Physical Exam: General: A&Ox3. NAD. Cooperative. HEENT: normocephalic. PERLAA. Vision/hearing intact. L cheek abrasion. L eye: no redness, normal ocular movements, no pain, normal pupillary reflex. Pulm: CTAB A&P. -wheezes, -rales, -rhonchi. Symmetrical chest rise. No increased work of breathing. No respiratory distress. Cardiac: RRR, -mrg. Radial pulses intact and symmetrical. Abdominal: Nontender, nondistended, soft. BS present. Results & Data Results & Data Vital Signs (Past 12 Hours) Vital Signs Temp Pulse Pulse Resp BP BP Pulse Ox 08/14/24 22:22 36.8 C 79 18 139/75 97 08/14/24 19:24 36.6 C 81 18 112/72 95 08/14/24 15:47 95 H 08/14/24 15:27 36.8 C 81 20 134/72 96 08/14/24 11:12 36.9 C 84 19 122/72 96 O2 Del Method 08/14/24 22:22 Room Air 08/14/24 19:24 Room Air 08/14/24 15:47 08/14/24 15:27 Room Air 08/14/24 11:12 Room Air PG Care Time/CCT Total # of Minutes Spent Total Time Spent with Patient: Total time spent is greater than 50% in coordination of care (as documented) at patient's floor/unit and/or counseling patient: Coding Level of Care Code 65199 SUB INP/OBS CARE 2/35MIN Diagnoses Fall W19.XXXA Encounter type: initial encounter (1) Fall Encounter type: initial encounter Qualified Code(s): W19.XXXA - Unspecified fall, initial encounter
--- NOTE | 2024-08-15 23:31 | Hospitalist Progress Note ---
Date of Service August 15, 2024 Assessment & Plan (1) Fall: Plan: Mechanical Fall. The left radial fracture and,? Scaphoid fracture Patient has followed with a hand surgeon Dr. Negron at [facility] in the past Exam as listed below. Return home was offered and recommended to patient by ER however due to inability to bear weight on her left foot she is not able to ambulate and be discharged home. Was recommended for medical admission for pain control, PT/OT, and reevaluation of left weightbearing ability Finger flexion/extension intact, sensation intact in all 5 fingers without deficit bilaterally LEFT LE: Patient has significant pain from the distal abel down radiating into the mid foot on the dorsal surface with any attempted movement and reports she cannot weight-bear even with the boot 2/2 pain. No left foot fracture is seen. If severe pain and ability to weight-bear persists, obtain CT of distal left leg and foot in a.m. LEFT UE: Left hand is with snuffbox tenderness, being wrapped and splinted at time of visit.x-rays with distal radial nondisplaced fracture. Patient has snuffbox tenderness and with a fall to an outstretched hand. Left wrist volar wrist splint being placed in ER. Given snuffbox tenderness recommend repeat radiograph in 14-21 days and review with patient's home orthopedic surgeon CTface: Soft tissue swelling, possible foreign bodies underlying skin service from abrasion. Tetanus offered. Lives in [place]. PT/OT pending Given possible foreign body noted on facial CT did offer tetanus booster cheek washed out and cleaned at the bedside by nursing staff. Patient last had vaccinations around 8 years ago, agreeable to Tdap booster. Her/benefits reviewed and Tdap given -consulted orthopedics: patient placed in boot Continue current pain control: switched tylenol to scheduled. Pain controlled awaiting placement. Patient is reporting she would like a cast if needed. will reach out to ortho. ?Concussion -Patient is with some nausea while in the ER. He did also receive fentanyl and may be having reaction to narcotics, no rashes present Evidence of concussion there is no diplopia, no nystagmus, she does not have a headache. Will continue to monitor. CThead clear. CTC-spine without fracture Watery left eye: Discussed with ophtalmology. No consult needed. At this point a corneal abrasion would be healed. He recommended artificial tears. Diet: Regular Disposition: Medical/surgical CODE STATUS: DNR/DNI, confirmed with patient at bedside on admission Admission and Anticipated Discharge Date Admission Date: August 12, 2024 Subjective 74 yo female reports no new symptoms. Eye symptoms have improved. Review of Systems Review of Systems: All systems reviewed & are unremarkable except as noted in HPI & below Physical Exam Physical Exam: General: A&Ox3. NAD. Cooperative. HEENT: normocephalic. PERLAA. Vision/hearing intact. L cheek abrasion. L eye: no redness, normal ocular movements, no pain, normal pupillary reflex. Pulm: CTAB A&P. -wheezes, -rales, -rhonchi. Symmetrical chest rise. No increased work of breathing. No respiratory distress. Cardiac: RRR, -mrg. Radial pulses intact and symmetrical. Abdominal: Nontender, nondistended, soft. BS present. Results & Data Results & Data Vital Signs (Past 12 Hours) Vital Signs Temp Pulse Resp BP Pulse Ox O2 Del Method 08/15/24 19:39 Room Air 08/15/24 19:39 Room Air 08/15/24 15:01 36.4 C L 88 14 118/72 97 Room Air 08/15/24 12:19 36.7 C 84 14 130/88 99 Room Air PG Care Time/CCT Total # of Minutes Spent Total Time Spent with Patient: Total time spent is greater than 50% in coordination of care (as documented) at patient's floor/unit and/or counseling patient: Coding Level of Care Code 35912 SUB INP/OBS CARE 2/35MIN Diagnoses Fall W19.XXXA Encounter type: initial encounter (1) Fall Encounter type: initial encounter Qualified Code(s): W19.XXXA - Unspecified fall, initial encounter
[2024-08-16] MEDS: MELATONIN 3 MG TAB PO PRN (00:56)
--- NOTE | 2024-08-16 16:17 | Orthopedic Progress Note ---
Date of Service August 16, 2024 Assessment & Plan (1) Fracture of intermediate cuneiform of left foot: I talked to her about her fractures. Fortunately her fractures are very stable and will not require any surgical management. With regards to her left wrist, I do not feel there is a need to cast it during her stay here. It is healing fine in the volar splint and she is comfortable in that splint. She has a hand surgeon that she wants to follow-up with when she returns to [place]. With regards to her left foot I told her she can be weightbearing as tolerated in the cam walker boot. She will follow-up in [place] with regards to her foot as well. I answered all of her questions. If you have any further questions please feel free to contact me at [phone]. (2) Left wrist fracture: Reginald Vergara seen and examined at bedside today. She is not anticipating discharge to [place] until Monday. She had some questions regarding her left hand and her left foot.. Review of Systems All systems reviewed & are unremarkable except as noted in HPI & below. Physical Exam Physical examination left hand shows she is wearing a volar splint. She is active motion of her fingers without much pain. Examination of her left foot shows that she is wearing a boot. She has active motion of her toes.. Results & Data Results & Data Laboratory Results . Diagnostic Findings . PG Care Time/CCT Total # of Minutes Spent Total Time Spent with Patient: Total time spent is greater than 50% in coordination of care (as documented) at patient's floor/unit and/or counseling patient: Coding Level of Care Code 51320 SUB INP/OBS CARE Diagnoses Fracture of intermediate cuneiform of left foot S92.232A Left wrist fracture S62.102A Encounter type: initial encounter Fracture type: closed (2) Left wrist fracture Encounter type: initial encounter Fracture type: closed Qualified Code(s): S62.102A - Fracture of unspecified carpal bone, left wrist, initial encounter for closed fracture
--- NOTE | 2024-08-16 22:21 | Hospitalist Progress Note ---
Date of Service August 16, 2024 Assessment & Plan (1) Fall: Plan: Mechanical Fall. The left radial fracture and,? Scaphoid fracture Patient has followed with a hand surgeon Dr. Negron at [facility] in the past Exam as listed below. Return home was offered and recommended to patient by ER however due to inability to bear weight on her left foot she is not able to ambulate and be discharged home. Was recommended for medical admission for pain control, PT/OT, and reevaluation of left weightbearing ability Finger flexion/extension intact, sensation intact in all 5 fingers without deficit bilaterally LEFT LE: Patient has significant pain from the distal abel down radiating into the mid foot on the dorsal surface with any attempted movement and reports she cannot weight-bear even with the boot 2/2 pain. No left foot fracture is seen. If severe pain and ability to weight-bear persists, obtain CT of distal left leg and foot in a.m. LEFT UE: Left hand is with snuffbox tenderness, being wrapped and splinted at time of visit.x-rays with distal radial nondisplaced fracture. Patient has snuffbox tenderness and with a fall to an outstretched hand. Left wrist volar wrist splint being placed in ER. Given snuffbox tenderness recommend repeat radiograph in 14-21 days and review with patient's home orthopedic surgeon CTface: Soft tissue swelling, possible foreign bodies underlying skin service from abrasion. Tetanus offered. Lives in [place]. PT/OT pending Given possible foreign body noted on facial CT did offer tetanus booster cheek washed out and cleaned at the bedside by nursing staff. Patient last had vaccinations around 8 years ago, agreeable to Tdap booster. Her/benefits reviewed and Tdap given -consulted orthopedics: patient placed in boot Continue current pain control: switched tylenol to scheduled. Pain controlled awaiting placement. Patient will be getting a cast today. ?Concussion -Patient is with some nausea while in the ER. He did also receive fentanyl and may be having reaction to narcotics, no rashes present Evidence of concussion there is no diplopia, no nystagmus, she does not have a headache. Will continue to monitor. CThead clear. CTC-spine without fract ure Watery left eye: Discussed with ophtalmology. No consult needed. At this point a corneal abrasion would be healed. He recommended artificial tears. Diet: Regular Disposition: Medical/surgical CODE STATUS: DNR/DNI, confirmed with patient at bedside on admission Admission and Anticipated Discharge Date Admission Date: August 12, 2024 Subjective Patient reports no new symptoms Review of Systems Review of Systems: All systems reviewed & are unremarkable except as noted in HPI & below Physical Exam Physical Exam: General: A&Ox3. NAD. Cooperative. HEENT: normocephalic. PERLAA. Vision/hearing intact. L cheek abrasion. L eye: no redness, normal ocular movements, no pain, normal pupillary reflex. Pulm: CTAB A&P. -wheezes, -rales, -rhonchi. Symmetrical chest rise. No increased work of breathing. No respiratory distress. Cardiac: RRR, -mrg. Radial pulses intact and symmetrical. Abdominal: Nontender, nondistended, soft. BS present. Results & Data Results & Data Vital Signs (Past 12 Hours) Vital Signs Temp Pulse Resp BP Pulse Ox O2 Del Method 08/16/24 16:00 36.3 C L 89 18 150/74 H 98 Room Air PG Care Time/CCT Total # of Minutes Spent Total Time Spent with Patient: Total time spent is greater than 50% in coordination of care (as documented) at patient's floor/unit and/or counseling patient: Coding Level of Care Code 80001 SUB INP/OBS CARE 2/35MIN Diagnoses Fall W19.XXXA Encounter type: initial encounter (1) Fall Encounter type: initial encounter Qualified Code(s): W19.XXXA - Unspecified fall, initial encounter
--- NOTE | 2024-08-17 22:32 | Hospitalist Progress Note ---
Date of Service August 17, 2024 Assessment & Plan (1) Fall: Plan: Mechanical Fall. The left radial fracture and,? Scaphoid fracture Patient has followed with a hand surgeon Dr. Negrno at [facility] in the past Exam as listed below. Return home was offered and recommended to patient by ER however due to inability to bear weight on her left foot she is not able to ambulate and be discharged home. Was recommended for medical admission for pain control, PT/OT, and reevaluation of left weightbearing ability Finger flexion/extension intact, sensation intact in all 5 fingers without deficit bilaterally LEFT LE: Patient has significant pain from the distal abel down radiating into the mid foot on the dorsal surface with any attempted movement and reports she cannot weight-bear even with the boot 2/2 pain. No left foot fracture is seen. If severe pain and ability to weight-bear persists, obtain CT of distal left leg and foot in a.m. LEFT UE: Left hand is with snuffbox tenderness, being wrapped and splinted at time of visit.x-rays with distal radial nondisplaced fracture. Patient has snuffbox tenderness and with a fall to an outstretched hand. Left wrist volar wrist splint being placed in ER. Given snuffbox tenderness recommend repeat radiograph in 14-21 days and review with patient's home orthopedic surgeon CTface: Soft tissue swelling, possible foreign bodies underlying skin service from abrasion. Tetanus offered. Lives in [place]. PT/OT pending Given possible foreign body noted on facial CT did offer tetanus booster cheek washed out and cleaned at the bedside by nursing staff. Patient last had vaccinations around 8 years ago, agreeable to Tdap booster. Her/benefits reviewed and Tdap given -consulted orthopedics: patient placed in boot Continue current pain control: switched tylenol to scheduled. Pain controlled awaiting placement. Patient will be getting a cast today. ?Concussion -Patient is with some nausea while in the ER. He did also receive fentanyl and may be having reaction to narcotics, no rashes present Evidence of concussion there is no diplopia, no nystagmus, she does not have a headache. Will continue to monitor. CThead clear. CTC-spine without fract ure Watery left eye: Discussed with ophtalmology. No consult needed. At this point a corneal abrasion would be healed. He recommended artificial tears. Diet: Regular Disposition: Medical/surgical CODE STATUS: DNR/DNI, confirmed with patient at bedside on admission Admission and Anticipated Discharge Date Admission Date: August 12, 2024 Subjective 74 yo female reports no new symptoms. Review of Systems Review of Systems: All systems reviewed & are unremarkable except as noted in HPI & below Physical Exam Physical Exam: General: A&Ox3. NAD. Cooperative. HEENT: normocephalic. PERLAA. Vision/hearing intact. L cheek abrasion. L eye: no redness, normal ocular movements, no pain, normal pupillary reflex. Pulm: CTAB A&P. -wheezes, -rales, -rhonchi. Symmetrical chest rise. No increased work of breathing. No respiratory distress. Cardiac: RRR, -mrg. Radial pulses intact and symmetrical. Abdominal: Nontender, nondistended, soft. BS present. PG Care Time/CCT Total # of Minutes Spent Total Time Spent with Patient: Total time spent is greater than 50% in coordination of care (as documented) at patient's floor/unit and/or counseling patient: Coding Level of Care Code 23943 SUB INP/OBS CARE 12/21MIN Diagnoses Fall W19.XXXA Encounter type: initial encounter (1) Fall Encounter type: initial encounter Qualified Code(s): W19.XXXA - Unspecified fall, initial encounter
[2024-08-18] MEDS: DICLOFENAC SOD 1% GEL 100 GM TUBE EXT SCH (20:02)
--- NOTE | 2024-08-18 22:52 | Hospitalist Progress Note ---
Date of Service August 18, 2024 Assessment & Plan (1) Fall: Plan: Mechanical Fall. The left radial fracture and,? Scaphoid fracture Patient has followed with a hand surgeon Dr. Negron at [facility] in the past Exam as listed below. Return home was offered and recommended to patient by ER however due to inability to bear weight on her left foot she is not able to ambulate and be discharged home. Was recommended for medical admission for pain control, PT/OT, and reevaluation of left weightbearing ability Finger flexion/extension intact, sensation intact in all 5 fingers without deficit bilaterally LEFT LE: Patient has significant pain from the distal abel down radiating into the mid foot on the dorsal surface with any attempted movement and reports she cannot weight-bear even with the boot 2/2 pain. No left foot fracture is seen. If severe pain and ability to weight-bear persists, obtain CT of distal left leg and foot in a.m. LEFT UE: Left hand is with snuffbox tenderness, being wrapped and splinted at time of visit.x-rays with distal radial nondisplaced fracture. Patient has snuffbox tenderness and with a fall to an outstretched hand. Left wrist volar wrist splint being placed in ER. Given snuffbox tenderness recommend repeat radiograph in 14-21 days and review with patient's home orthopedic surgeon CTface: Soft tissue swelling, possible foreign bodies underlying skin service from abrasion. Tetanus offered. Lives in [place]. PT/OT pending Given possible foreign body noted on facial CT did offer tetanus booster cheek washed out and cleaned at the bedside by nursing staff. Patient last had vaccinations around 8 years ago, agreeable to Tdap booster. Her/benefits reviewed and Tdap given -consulted orthopedics: patient placed in boot Continue current pain control: switched tylenol to scheduled. Pain controlled awaiting placement. Patient does not need a cast for her wrist. ?Concussion -Patient is with some nausea while in the ER. He did also receive fentanyl and may be having reaction to narcotics, no rashes present Evidence of concussion there is no diplopia, no nystagmus, she does not have a headache. Will continue to monitor. CThead clear. CTC-spine without fracture Watery left eye: Discussed with ophtalmology. No consult needed. At this point a corneal abrasion would be healed. He recommended artificial tears. Diet: Regular Disposition: Medical/surgical CODE STATUS: DNR/DNI, confirmed with patient at bedside on admission Admission and Anticipated Discharge Date Admission Date: August 12, 2024 Subjective Patienrt reports no new symptoms. Physical Exam Physical Exam: General: A&Ox3. NAD. Cooperative. HEENT: normocephalic. PERLAA. Vision/hearing intact. L cheek abrasion. L eye: no redness, normal ocular movements, no pain, normal pupillary reflex. Pulm: CTAB A&P. -wheezes, -rales, -rhonchi. Symmetrical chest rise. No increased work of breathing. No respiratory distress. Cardiac: RRR, -mrg. Radial pulses intact and symmetrical. Abdominal: Nontender, nondistended, soft. BS present. Results & Data Results & Data Vital Signs (Past 12 Hours) Vital Signs Temp Pulse Resp BP Pulse Ox O2 Del Method 08/18/24 22:21 36.6 C 79 16 127/69 97 Room Air 08/18/24 16:14 36.6 C 71 18 144/88 H 99 Room Air PG Care Time/CCT Total # of Minutes Spent Total Time Spent with Patient: Total time spent is greater than 50% in coordination of care (as documented) at patient's floor/unit and/or counseling patient: Coding Level of Care Code 64254 SUB INP/OBS CARE 2/35MIN Diagnoses Fall W19.XXXA Encounter type: initial encounter (1) Fall Encounter type: initial encounter Qualified Code(s): W19.XXXA - Unspecified fall, initial encounter
--- NOTE | 2024-08-19 16:08 | Hospitalist Progress Note ---
Date of Service August 19, 2024 Assessment & Plan (1) Fall: Plan[facility], possibly left scaphoid, and multiple bones in left foot Seen by Orthopedic Surgeon here Splint on left wrist and walking boot left foot-can WBAT Continue tylenol for pain (2) Fracture of intermediate cuneiform of left foot: Plan: as above (3) Left wrist fracture: Plan: as above (4) Contusion of face: Plan: left cheek with ecchymosis CTface: Soft tissue swelling, possible foreign bodies underlying skin service from abrasion. Tetanus vax given CThead clear. CTC-spine without fracture No headache or signs of concussion (5) CHI (closed head injury): Plan: as above Plan DVT proph-add Lovenox SQ given prolonged immobility, fractures Dispo-medically stable for discharge, denied acute rehab, awaiting SNF placement Admission and Anticipated Discharge Date Admission Date: August 12, 2024 Subjective Pt reports tylenol helps with pain but RN reports pt declines to bear weight on foot. Is eating/drinking, denies CP,SB, abd pain, nausea. She is moving her bowels Physical Exam Constitutional: WD/WN, vitals as above Respiratory: normal respiratory effort, lungs clear to auscultation Musculoskeletal: Extremities: + extremities abnormal to inspection (left forearm in splint,left leg/ankle in boot) Psychiatric: A+Ox3, euthymic affect Results & Data Results & Data Vital Signs (Past 12 Hours) Vital Signs Temp Pulse Resp BP Pulse Ox O2 Del Method 08/19/24 07:39 36.5 C 86 16 129/79 97 Room Air Laboratory Results no labs PG Care Time/CCT Total # of Minutes Spent Total Time Spent with Patient: Total time spent is greater than 50% in coordination of care (as documented) at patient's floor/unit and/or counseling patient: Coding Level of Care Code 56382 SUB INP/OBS CARE 12/21MIN Diagnoses Fall W19.XXXA Encounter type: initial encounter Fracture of intermediate cuneiform of left foot S92.232A Left wrist fracture S62.102A Encounter type: initial encounter Fracture type: closed Contusion of face S00.83XA Encounter type: initial encounter CHI (closed head injury) S09.90XA Encounter type: initial encounter (1) Fall Encounter type: initial encounter Qualified Code(s): W19.XXXA - Unspecified fall, initial encounter (3) Left wrist fracture Encounter type: initial encounter Fracture type: closed Qualified Code(s): S62.102A - Fracture of unspecified carpal bone, left wrist, initial encounter f or closed fracture (4) Contusion of face Encounter type: initial encounter Qualified Code(s): S00.83XA - Contusion of other part of head, initial encounter (5) CHI (closed head injury) Encounter type: initial encounter Qualified Code(s): S09.90XA - Unspecified injury of head, initial encounter
[2024-08-19] MEDS: ENOXAPARIN INJ 40 MG/0.4 ML SYR SQ SCH (17:06)
--- NOTE | 2024-08-20 08:50 | Hospitalist Progress Note ---
Date of Service August 20, 2024 Assessment & Plan (1) [facility]: [facility] radius, possibly left scaphoid, and multiple bones in left foot (intermediate cuneiform) - Seen by Orthopedic Surgeon here - Splint on left wrist and walking boot left foot-can WBAT - Continue tylenol scheduled for pain (2) Contusion of face: Plan: Closed head injury Left cheek/under-eye with ecchymosis -CTface: Soft tissue swelling, possible foreign bodies underlying skin service from abrasion. Tetanus vax given -CThead clear. CTC-spine without fracture -No headache or signs of concussion Plan DVT proph-added Lovenox SQ given prolonged immobility, fractures-recommend sariah nuing for 10-day course through 08/28/2024 until more mobile Dispo-medically stable for discharge, denied acute rehab, awaiting SNF placement Admission and Anticipated Discharge Date Admission Date: August 12, 2024 Anticipated date of discharge: 08/21/24 Supervising Physician Co-Signing Physician Notes ANGEL Supervision Note: I personally saw and examined the patient. I verified all leahy points and agree with ANGEL Rodriguez with the following exceptions and/or additions: S-patient feeling better today, pain is controlled. She denies chest pains or shortness of breath O- Vitals reviewed Gen: AAOx3, NAD HEENT: Anicteric sclerae, EOMI, small ecchymosis left infraorbital region over maxilla CV: RRR no mgr nl S1S2 Pulm: CTAB no wcr Ext: Left foot and ankle in walking boot not removed, left forearm and wrist in splint not removed, able to flex and extend left fingers and toes A/X-53-rw[place]-old female here with mechanical fall and left wrist and foot fractures Continue mobilization, weight-bear as tolerated on the left Awaiting rehab placement-she is now accepted and approved by insurance for rehab placement on 08/21 Subjective Pt seen sitting in bedside chair at the time of visit. States that she is continuing to have aching pain at her L wrist and LLE but that is has improved since initial admission. Pt is experiencing discomfort on her bottom, states it is secondary to the hospital-provided underwear. No open wounds or redness has been noted to the area. Denies LUGO, numbess or tingling, and ocular symptoms. Review of Systems Eyes: no discharge Cardiovascular: no chest pain and no palpitations Musculoskeletal: Mild aching at L wrist and LLE Neurologic: no loss of sensation, no tingling and no numbness Physical Exam Eyes: PERRL, conjunctivae normal, anicteric sclerae L under-eye with ecchymosis Respiratory: normal respiratory effort, lungs clear to auscultation Cardiovascular: RRR, no murmur, no edema Gastrointestinal (Abdomen): Percussion/Palpation: abdomen soft; abdomen nontender Musculoskeletal: LLE in brace; sensation, ROM, and circulation intact. L wrist in zachary wrap; sensa tion, ROM, and circulation intact. Results & Data Results & Data Vital Signs (Past 12 Hours) Vital Signs Temp Pulse Resp BP Pulse Ox O2 Del Method 08/20/24 07:36 36.4 C L 74 16 132/80 94 Room Air PG Care Time/CCT Total # of Minutes Spent Total Time Spent with Patient: Total time spent is greater than 50% in coordination of care (as documented) at patient's floor/unit and/or counseling patient: Coding Level of Care Code None Diagnoses Fall W19.XXXA Encounter type: initial encounter Contusion of face S00.83XA Encounter type: initial encounter (1) Fall Encounter type: initial encounter Qualified Code(s): W19.XXXA - Unspecified fall, initial encounter (2) Contusion of face Encounter type: initial encounter Qualified Code(s): S00.83XA - Contusion of other part of head, initial encounter
--- NOTE | 2024-08-20 16:46 | Billing Data ---
Date of Service August 20, 2024 Coding Level of Care Code 20479 SUB INP/OBS CARE
[2024-08-21 07:49] VITALS: BP 125/68; PULSE 75; RESP 16; TEMP 97.9; O2SAT 97
--- NOTE | 2024-08-21 10:22 | Discharge Summary ---
Discharge Summary Date of Service August 21, 2024 Principal Dx & Hospital Course #1 = Principal Diagnosis (1) Fall: Mechanical Fall, tripped on pavement on sidewalk [facility] - Fractured left radius, possibly left scaphoid, and multiple bones in left foot (intermediate cuneiform) - Seen by Orthopedic Surgeon while admitted, no surgery or cast. - Splint on left wrist and walking boot left foot-can WBAT - Continue tylenol for pain management (2) Contusion of face: Closed head injury Left cheek/under-eye with ecchymosis -CTface: Soft tissue swelling, possible foreign bodies underlying skin service from abrasion. Tetanus vax given -CThead clear. CTC-spine without fracture -No headache or signs of concussion Plan DVT proph-added Lovenox SQ given prolonged immobility, fractures-recommend continuing for 10-day course through 08/28/2024 until more mobile Dispo-medically stable for discharge with dispo to [facility] today at 1130 Notes For Next Care Provider Please follow up with orthopedic surgeon in 1-2 weeks after discharge from rehabilitation facility. Medication Changes From Visit Continue on Lovenox as prescribed x 10-days through 08/28/2024 Admission HPI Per Admitting Provider Patient is a 74-year-old female with a past medical history of left hand surgery at [facility] [place] [facility] [place] who is visiting from out of town and was rushing when she tripped over a curve called saying her to fall. She reports she was twisted when she fell and fell onto a possibly outstretched left hand. Did not lose consciousness. Did strike her face. She is not on blood thinners. No chest pain, chest pressure, lightheadedness, dizziness that contributed to her fall. She does not have a headache at time of admission. She reports that her left lower leg hurts on any attempted to weight-bear. She is able to wiggle the toes and move the ankle a little bit however ankle movement is rapidly limited by pain. She reports her left wrist hurts, she is able to flex and extend her fingers and is being placed in a splint at time of exam. She denies any past cardiac history. She reports she takes mostly multivitamins, no daily prescription medications other than eyedrops. Allergic to Levaquin, denies other medication allergies. Reports CODE STATUS is DNR/DNI. She does not use tobacco products, no alcohol use. Due to her pain she is not able to ambulate and reports she is not able to return home or be discharged from the hospital at this time. Admission Exam Per Admitting Provider General: A&Ox3. NAD. Cooperative. HEENT: normocephalic. PERLAA. Vision/hearing intact. L cheek abrasion. Pulm: CTAB A&P. -wheezes, -rales, -rhonchi. Symmetrical chest rise. No increased work of breathing. No respiratory distress. Cardiac: RRR, -mrg. Radial pulses intact and symmetrical. Abdominal: Nontender, nondistended, soft. BS present. Physical exam Left knee: Anterior abrasion, flexion/extension with full strength, full range of motion. - L elbow: No lateral epicondyle TTP Left foot: Tender to palpation overlying the anterior/dorsal surface. No soft tissue swelling/hematoma noted. Able to wiggle toes without difficulty. Is able to initiate ankle dorsi/plantarflexion however this is rapidly pain limited. DP/PT pulse is intact. Right foot: Nontender. Neurovascularly intact. Ankle dorsiflexion/plantarflexion with full strength Right knee: Full range of motion, flexion/extension intact Discharge Exam Eyes PERRL, conjunctivae normal, anicteric sclerae Ecchymosis to L infraorbital region, improving. Respiratory normal respiratory effort, lungs clear to auscultation Cardiovascular RRR, no murmur, no edema Gastrointestinal (Abdomen) Percussion/Palpation: abdomen soft; abdomen nontender Musculoskeletal L foot and ankle in walking boot, L forearm and wrist in splint. Able to extend and flex L fingers as well as toes. Sensation in tact. Discharge Plan Discharge Items Patient Disposition: Transfer Long Term Fac Reason For Visit: FALL Discharge Diagnosis: Fall, Fx of L intermediate cuneiform, Fx of L wrist Condition on Discharge: Good Activity: As commented below Activity Comment: LUE Non WBAT, LLE WBAT L walking boot Non-emergency contact: Primary Care Provider and Surgeon Call non-emergency contact if: you have any medication questions, your symptoms worsen and your pain is not controlled Follow-up/Referrals: Yajaira Acevedo CRNP [Primary Care Provider] - (Please f/u within 1-2 weeks after discharge from rehab) Diet: Regular Addtl Attending Provider Instructions: You were admitted to the hospital after a fall. At that time, you were diagnosed with a L foot and L wrist fracture. You were evaluated by the orthopedics team and no cast was recommended. Can use tylenol as needed for pain. Please follow up with orthopedic surgery in 1-2 weeks after discharge from rehabilitation facility. Pending Studies at Discharge: No Stand-Alone Forms: My [facility] Skilled Items Patient informed of condition?: Yes DNR: Yes Discharge Level of Care: Skilled Communicable Disease: No Discharge Prognosis: Stable Lines: None Urinary Catheter: No Medications and DC Order Prescriptions: New acetaminophen 325 mg Tablet 650 mg PO QID 30 Days Qty: 240 0RF enoxaparin [Lovenox] 40 mg/0.4 mL Syringe 40 mg subcut Q24H 8 Days Qty: 3.2 0RF Continued B12 1 tab PO DAILY iron 1 tab PO DAILY niacin 1 tab PO DAILY Xiidra 5 % dropperette 1 drp ophthalmic (eye) BID Discharge Orders: Discharge Order (Routine); Ordered 08/21/24 Ordered By: Jaime Moody/Other Patient Handouts: Treating Wrist Fractures Admission Data Admit Date/Time: 08/12/24 21:51 Attending Provider: Pam Barlow Admit Provider: Gianni Beckman Primary Care Provider: Yajaira Acevedo Other Providers: Gianni Beckman; Demetrio Sorensen Other Interventions: Discharge Summary Assessment (RN) Last Done: 08/21/24 10:18 Hospital Stay Data Consultations 08/11/24 16:11 ED Decision to Admit Stat 08/12/24 10:16 Consult Orthopedic Surgery Routine 08/21/24 07:41 Burn CD for patient Stat Diagnostic Imagining Performed 08/11/24 13:47 CT head/brain wo con Stat 08/11/24 13:48 CT cervical spine wo con Stat 08/11/24 14:49 CT facial bones wo con Stat 08/11/24 16:44 CT foot LT wo con Routine Head CT 08/11/24 13:47 CT head/brain wo con CLINICAL HISTORY: trauma Technique: Contiguous axial CT images of the head were acquired from the base of the skull to the vertex without intravenous contrast administration. Images were viewed in brain, subdural and bone windows. Automated dose lowering techniques and/or adjustment according to patient size were utilized for this exam. Comparison: None available at the time of this dictation. Findings: The ventricles, basal cisterns, and cerebral sulci are normal. There is no acute intracranial hemorrhage or evidence of acute territorial infarction. Neither mass effect, shift of the midline structures, nor abnormal extra-axial fluid collections are shown. Imaged portions of the paranasal sinuses and mastoid air cells are clear. The orbits appear normal. There are no acute fractures of the calvaria or scalp swelling. Impression: No acute intracranial hemorrhage, no evidence of acute territorial infarction or other acute intracranial disease process. ACT 112: Negative or not required by law. Electronically signed by: Phillip Garcia M.D. 08/11/2024 3:[address] 08/11/24 13:48 CT cervical spine wo con CLINICAL HISTORY: trauma TECHNIQUE: Multidetector row helical CT of the cervical spine was performed without administration of intravenous contrast. Coronal and sagittal reformations were obtained. Automated dose lowering techniques and/or adjustment according to patient size were utilized for this exam. Comparison: None available at the time of this dictation. FINDINGS: No acute fractures or subluxations are identified. Degenerative changes are seen in the visualized spine. The alignment is normal. Biapical scarring is seen in the lungs. IMPRESSION: Degenerative changes without evidence of acute bony injury. ACT 112: Negative or not required by law. Electronically signed by: Phillip Garcia M.D. 08/11/2024 3:21 PM Wrist X-Ray 08/11/24 13:48 XR wrist LT min 3V routine CLINICAL HISTORY: trauma TECHNIQUE: 4 views of the left wrist were obtained. Comparison: None available at the time of this dictation. FINDINGS: There is a lucency projecting over the radial metaphysis. Apparent lucency over the lateral portion of the scaphoid only is likely artifactual. Joint spaces are well-preserved. Soft tissue swelling is seen about the wrist. IMPRESSION: Possible nondisplaced radial fracture. Scaphoid lucency is likely artifactual but correlation with point tenderness is recommended. ACT 112: Negative or not required by law. Electronically signed by: Phillip Garcia M.D. 08/11/2024 2:38 PM Elbow X-Ray 08/11/24 14:14 XR elbow LT min 3V routine CLINICAL HISTORY: trauma TECHNIQUE: 3 views of the left elbow were obtained. Comparison: None available at the time of this dictation. FINDINGS: There is no evidence of an acute fracture. Apparent irregularity in the lateral epicondyle is likely artifactual. Joint spaces are well-preserved. There is no prominence of the anterior or posterior fat pads to suggest an effusion. No soft tissue abnormality is seen. IMPRESSION: No evidence of acute osseous injury. Apparent irregularity in the lateral epicondyle is likely artifactual, correlation with point tenderness is recomm ended. ACT 112: Negative or not required by law. Electronically signed by: Phillip Garcia M.D. 08/11/2024 3:34 PM Foot X-Ray 08/11/24 14:14 XR foot LT min 3V routine CLINICAL HISTORY: trauma TECHNIQUE: 3 views of the left foot were obtained. Comparison: None available at the time of this dictation. FINDINGS: No fractures are present. Bones are osteopenic. Irregularity about the lateral aspects of the second, third, and fourth metatarsal proximal shaft is likely chronic. Degenerative changes are seen. No soft tissue abnormality is seen. IMPRESSION: Degenerative changes without evidence of acute fracture. ACT 112: Negative or not required by law. Electronically signed by: Phillip Garcia M.D. 08/11/2024 3:34 PM Hip X-Ray 08/11/24 14:14 XR hip LT min 2V CLINICAL HISTORY: trauma TECHNIQUE: 2 views of the left hip were obtained. Comparison: None available at the time of this dictation. FINDINGS: There is no evidence of an acute fracture. Total hip arthoplasty hardware is seen without perihardware lucency or hardware fracture. No soft tissue abnormality is seen. IMPRESSION: No evidence of acute osseous injury. ACT 112: Negative or not required by law. Electronically signed by: Phillip Garcia M.D. 08/11/2024 3:[address] 08/11/24 14:49 CT facial bones wo con CLINICAL HISTORY: trauma TECHNIQUE: Multidetector row helical CT of the maxillofacial bones was performed without administration of intravenous contrast, and processed with bone and soft tissue algorithms. Coronal and sagittal reformations were obtained. Automated dose lowering techniques and/or adjustment according to patient size were utilized for this exam. Comparison: None available at the time of this dictation. FINDINGS: Nasal bones are normal. The mandible is intact. The temporomandibular joints are anatomically aligned. Pterygoid plates are intact. Zygomatic arches are intact. The globes are normal and symmetric, without proptosis, obvious disruption or lens dislocation. There is no orbital radiopaque foreign body. The orbital tubbs are intact. The retrobulbar fat is without evidence of disruption. Extraocular muscles are normal and symmetric. Optic nerve sheath complexes are normal in course and caliber. Imaged portions of the paranasal sinuses and mastoid air cells are clear. Soft tissue swelling is seen in the left greater than right maxillary region. Numerous radiodensities in the skin surface may represent foreign bodies. IMPRESSION: Soft tissue swelling and possible radiodense foreign bodies within the skin surface. No evidence of acute fracture. ACT 112: Negative or not required by law. Electronically signed by: Phillip Garcia M.D. 08/11/2024 3:[address] 08/11/24 16:44 CT foot LT wo con CLINICAL HISTORY: NWB, severe dorsal midfood pain TECHNIQUE: Multidetector row helical CT of the left foot was performed without intravenous contrast. Coronal and sagittal reformations were obtained. Automated dose lowering techniques and/or adjustment according to patient size were utilized for this examination. CT DOSE: 332.7 mGy.cm Comparison: Comparison is made to foot radiograph 08/11/2024 FINDINGS: Fractures of the dorsal aspect of the cuneiform bones noted. There is a fracture of the superior aspect of the navicular bone. Fracture of the superior and inferior aspects of the cuboid bone. Degenerative changes are seen. There are is extensive osteopenia. Soft tissue swelling is seen. IMPRESSION: Nondisplaced fractures of the superior aspect of the 3 cuneiform bones, superior aspect of the navicular bone, and superior and inferior cuboid bone with associated soft tissue swelling. ACT 112: Negative or not required by law. Electronically signed by: Phillip Garcia M.D. 08/11/2024 6:10 PM Vaccinations Tetanus provided Pending Results Patient Have Any Pending Studies at Discharge: No Discharge Instructions Given to Patient (Per Discharging Provider) You were admitted to the hospital after a fall. At that time, you were diagnosed with a L foot and L wrist fracture. You were evaluated by the orthopedics team and no cast was recommended. Can use tylenol as needed for pain. Please follow up with orthopedic surgery in 1-2 weeks after discharge from rehabilitation facility. Supervising Physician Co-Signing Physician Notes ANGEL Supervision Note: I personally saw and examined the patient. I verified all leahy points and agree with ANGEL Rodriguez with the following exceptions and/or additions: S-patient feeling better today, pain is controlled. She denies chest pains or shortness of breath O- Vitals reviewed Gen: AAOx3, NAD HEENT: Anicteric sclerae, EOMI, small ecchymosis left infraorbital region over maxilla CV: RRR no mgr nl S1S2 Pulm: CTAB no wcr Ext: Left foot and ankle in walking boot not removed, left forearm and wrist in splint not removed, able to flex and extend left fingers and toes A/G-5-byer-old female here with mechanical fall and left wrist and foot fra ctures Continue mobilization, weight-bear as tolerated on the left Awaiting rehab placement-she is now accepted and approved by insurance for rehab placement on 08/21 Total Time Total Time Spent Total Time Spent (In Minutes): 25 min Coding Level of Care Code None Diagnoses Fall W19.XXXA Encounter type: initial encounter Contusion of face S00.83XA Encounter type: initial encounter
--- NOTE | 2024-08-21 10:57 | Billing Data ---
Date of Service August 21, 2024 Coding Level of Care Code 59794 INP/OBS DISCH >30 MIN
== END 2024-08-21 11:44 | DRG 563 ==
LOC: EDINP 13:16 → ED 13:16 → SUATTDRO 16:32 → 2N 21:17 → SUATTDRO 08-12 21:51 → 2N 08-14 03:02 → 3W 08-16 22:05